=== PATIENT | male | born 1980 | race Two or more races ===

== ENCOUNTER 2021-09-22 21:29 | Emergency (ER) | payer MEDICAID ==
[~2021-09-22] VITALS: Ht 172.7 cm; Wt 75.0 kg
[2021-09-22 22:56] LABS: BASOPHILS % 1.1 % (0.0-2.0); EOSINOPHILS % 1.2 % (0.0-5.0); HEMATOCRIT. 43.1 % (42.0-52.0); HEMOGLOBIN. 15.1 g/dL (14.0-18.0); LYMPHOCYTES % 41.2 % (20.0-50.0); MEAN CORPUSCULAR HEMOGLOBIN 32.2 pg (28.0-32.0); MEAN CORPUSCULAR VOLUME 92.2 fL (80.0-94.0); MEAN PLATELET VOLUME 7.6 fl (7.4-10.4); MONOCYTES % 10.9 % (2.0-8.0); NEUTROPHILS % 45.6 % (40.0-76.0); PLATELET 303 x1000/uL (130-400); RED BLOOD CELL COUNT 4.67 mill/uL (4.7-6.1); RED CELL DISTRIBUTION WIDTH 14.6 % (11.6-14.6)
[2021-09-22 23:02] LABS: CHLORIDE 106 mEq/L (98-107)
[2021-09-22 23:06] LABS: ETHANOL BLOOD 232 mg/dL
[2021-09-23 01:06] LABS: CLARITY URINE CLEAR (CLEAR); COLOR URINE YELLOW (YELLOW); KETONES URINE TRACE (NEGATIVE); LEUKOCYTE ESTERASE URINE NEGATIVE (NEGATIVE); NITRITE URINE NEGATIVE (NEGATIVE); OCCULT BLOOD URINE NEGATIVE (NEGATIVE); PROTEIN URINE TRACE (NEGATIVE); SPECIFIC GRAVITY URINE 1.023 (1.005-1.030)
[2021-09-23 01:24] LABS: OPIATES URINE SCREEN NEGATIVE (NEGATIVE)
[2021-09-23 01:25] LABS: *AMPHETAMINES SCREEN URINE NEGATIVE (NEGATIVE); *BARBITURATES SCREEN URINE NEGATIVE (NEGATIVE); *BENZODIAZEPINES SCREEN URINE NEGATIVE (NEGATIVE); *COCAINE SCREEN URINE NEGATIVE (NEGATIVE); CANNABINOID URINE SCREEN NEGATIVE (NEGATIVE); PHENCYCLIDINE URINE SCREEN NEGATIVE (NEGATIVE)
[2021-09-23 01:26] LABS: METHADONE URINE SCREEN NEGATIVE (NEGATIVE)
[2021-09-23] MEDS: HYDROXYZINE 25MG TABLET PO PRN (07:55)
[2021-09-23] MEDS: TRAZODONE HCL 50MG TABLET PO SCH (21:54)
[2021-09-24] MEDS: HYDROXYZINE 25MG TABLET PO PRN (17:45)
[2021-09-24 20:30] VITALS: BP 142/96
[2021-09-24] MEDS: TRAZODONE HCL 50MG TABLET PO SCH (20:33)
== END 2021-09-24 20:57 ==
LOC: ER 21:29
DX: F33.2 Major depressive disorder, recurrent severe without psychotic features (principal); F41.9 Anxiety disorder, unspecified; R45.851 Suicidal ideations; F10.10 Alcohol abuse, uncomplicated; Y90.7 Blood alcohol level of 200-239 mg/100 ml; I49.8 Other specified cardiac arrhythmias; Z72.89 Other problems related to lifestyle; Z75.1 Person awaiting admission to adequate facility elsewhere; Z20.822 Contact with and (suspected) exposure to COVID-19
CPT/HCPCS: 36415; 80053; 80307; 80320; 80329; 85025; 93005; 99285; G0480